=== PATIENT | female | born 1980 | race Caucasian/White ===

== ENCOUNTER 2021-02-12 08:42 | Outpatient (CLI) | payer OTHER | END 2021-02-12 08:43 | disposition home or self-care (01) | LOC: CSHMAMMO 08:42 | PROVIDERS: ATTEND Internal Medicine | DX: N64.4 Mastodynia (principal) | CPT/HCPCS: 77066; G0279 ==

== ENCOUNTER 2022-06-24 12:52 | Outpatient (CLI) | payer BC | END 2022-06-24 12:53 | disposition home or self-care (01) | LOC: CSHMAMMO 12:52 | PROVIDERS: ATTEND Internal Medicine | DX: Z12.31 Encounter for screening mammogram for malignant neoplasm of breast (principal) | CPT/HCPCS: 77063; 77067 ==

== ENCOUNTER 2023-08-11 09:13 | Outpatient (CLI) | payer BC | END 2023-08-11 09:14 | disposition home or self-care (01) | LOC: CSHMAMMO 09:13 | PROVIDERS: ATTEND Internal Medicine | DX: Z12.31 Encounter for screening mammogram for malignant neoplasm of breast (principal) | CPT/HCPCS: 77063; 77067 ==

== ENCOUNTER 2024-08-11 14:56 | Outpatient (CLI) | payer BC | END 2024-08-11 14:57 | disposition home or self-care (01) | LOC: CSHMAMMO 14:56 | PROVIDERS: ATTEND Internal Medicine | DX: Z12.31 Encounter for screening mammogram for malignant neoplasm of breast (principal) | CPT/HCPCS: 77063; 77067 ==

== ENCOUNTER 2025-09-19 14:10 | Outpatient (CLI) | payer BC | END 2025-09-19 14:11 | disposition home or self-care (01) | LOC: CSHMAMMO 14:10 | PROVIDERS: ATTEND Internal Medicine | DX: Z12.31 Encounter for screening mammogram for malignant neoplasm of breast (principal); R92.333 Mammographic heterogeneous density, bilateral breasts | CPT/HCPCS: 77063; 77067 ==